=== PATIENT | female | born 1960 | race Caucasian/White ===

== ENCOUNTER → 2016-06-16 | Outpatient (REF) | payer BC ==
[~2016-06-16] MED LIST: COPA20IN AD; IMIT50TA PO; VAGI10TA VA; [UNRECOGNIZED DRUG - CODE] PO
[2016-06-16 11:56] LABS: MEAN CORPUSCULAR HEMOGLOBIN 32.2 pg (27.0-33.0); MEAN CORPUSCULAR HGB CONC 34.1 g/dl (32.0-36.5); MEAN CORPUSCULAR VOLUME 94.4 fl (80.0-96.0); RED CELL DISTRIBUTION WIDTH 13.9 % (11.5-14.5); WHITE BLOOD COUNT 4.3 K/mm3 (4.0-10.0)
[2016-06-16 12:23] LABS: ALBUMIN 3.8 GM/DL (3.2-5.2); ALBUMIN/GLOBULIN RATIO 1.15 (1.00-1.93); ALKALINE PHOSPHATASE 80 U/L (45-117); ALT/SGPT 29 U/L (12-78); ANION GAP 5 MEQ/L (8-16); AST/SGOT 24 U/L (15-37); BILIRUBIN,TOTAL 0.3 MG/DL (0.2-1.0); BLOOD UREA NITROGEN 24 MG/DL (7-18); CALCIUM LEVEL 8.9 MG/DL (8.5-10.1); CARBON DIOXIDE LEVEL 27 MEQ/L (21-32); CHLORIDE LEVEL 109 MEQ/L (98-107); CHOLESTEROL LEVEL 206 MG/DL (<200); CREATININE FOR GFR 0.91 MG/DL (0.55-1.02); GLOMERULAR FILTRATION RATE > 60.0 (>51); GLUCOSE, FASTING 96 MG/DL (70-105); POTASSIUM SERUM 4.5 MEQ/L (3.5-5.1); SODIUM LEVEL 141 MEQ/L (136-145); TOTAL PROTEIN 7.1 GM/DL (6.4-8.2); TRIGLYCERIDES LEVEL 106 MG/DL (<150)
== END ==
LOC: M SFHCCLAY 07:07
PROVIDERS: ATTEND Nurse Practitioner Family
DX: G35 Multiple sclerosis (principal); E78.5 Hyperlipidemia, unspecified

== ENCOUNTER → 2016-06-23 | Outpatient (CLI) | payer BC ==
--- NOTE | 2016-06-23 08:54 | REPMRS ---
Patient History The patient states she had a clinical breast exam in 12/23 Patient is postmenopausal and is nulliparous. Family history of colorectal cancer in father under age 50, breast cancer in mother at age 62, ovarian cancer in paternal aunt under age 50, breast cancer in maternal aunt at age 50 or over, and breast cancer in maternal grandmother under age 50. Taking estrogen for 1 year 3 months. Took unspecified hormones for 3 years. Digital Woman Screen Mammo: June 23, 2016 - Exam #: [id number] Bilateral CC and MLO view(s) were taken. Technologist: Ruba Felipe, Technologist Prior study comparison: June 25, 2015, digital woman screen mammo performed at [facility]. June 27, 2014, digital woman screen mammo performed at [facility]. December 22, 2011, digital woman screen mammo performed at [facility]. FINDINGS: There are scattered fibroglandular densities. There has been no change in the appearance of the mammogram from the prior studies. There is a mild amount of scattered fibroglandular density which is fairly symmetric. There is no interval development of dominant mass, architectural distortion, or clustered microcalcification suggestive of malignancy. ASSESSMENT: BI-RADS/ACR category 1 mammogram. Negative. Recommendation Routine screening mammogram in 1 year (for women over age 40). This mammogram was interpreted with the aid of an FDA-approved computer-aided dectection system. Electronically Signed By: Brian Delgado MD 06/23/16 0854
--- NOTE | 2016-06-24 15:01 | DEXA ---
AP SPINE L1 - L4 0.975 -1.8 -0.9 LT FEMUR TOTAL 0.783 -1.8 -1.1 RT FEMUR TOTAL 0.821 -1.5 -0.8 TOTAL BODY TOTAL OTHER DUAL FEMUR FRAX* ASSESSMENT Risk factors: Family history (parent hip fracture). History of fracture ( adult). Secondary osteoporosis (premature menopause.) 10 year probability of fracture Major osteoporotic fracture 26.7 % Hip fracture 2.0 % COMMENTS: There is low bone density of the spine. There is low bone density of the left hip. There is low bone density of the right hip. The increased density of the spine does represent a significant change since . The decreased density of the left hip does not represent a significant change since 06/27/2014. The increased density of the right hip does represent a significant change. The density of the spine has decreased 4.6% since the initial exam on 2006. The spine density has increased 1.5% since the most recent exam on 06/27/2014. The density of the left hip has decreased 4.2% since the initial exam on 2006. The density of the left hip has decreased 0.6% since the most recent exam on . The density of the right hip has increased 3.7% since the initial exam on 2009. The density of the right hip has increased 1.6% since the most recent exam on . FOLLOW-UP: Recommendation for the next bone density exam: 2 years. ANA PAULA
== END ==
LOC: M WHC 07:50
PROVIDERS: ATTEND Nurse Practitioner Women's Health
DX: E28.319 Asymptomatic premature menopause (principal); M85.80 Other specified disorders of bone density and structure, unspecified site; Z87.81 Personal history of (healed) traumatic fracture; Z12.31 Encounter for screening mammogram for malignant neoplasm of breast; Z80.3 Family history of malignant neoplasm of breast
CPT/HCPCS: 77080; G0202

== ENCOUNTER → 2016-12-01 | Outpatient (REF) | payer BC | LOC: M SFHCWAGY 11:12 | PROVIDERS: ATTEND Nurse Practitioner Women's Health | DX: Z12.4 Encounter for screening for malignant neoplasm of cervix (principal) ==

== ENCOUNTER → 2017-06-22 | Outpatient (CLI) | payer BC | LOC: M WHC 08:07 | DX: Z12.31 Encounter for screening mammogram for malignant neoplasm of breast (principal) | CPT/HCPCS: 77067 ==

== ENCOUNTER → 2017-12-27 | Outpatient (CLI) | payer BC ==
[~2017-12-27] MED LIST changes: -COPA20IN AD; -IMIT50TA PO; +PROHANCE 279.3MG/ML 15ML VIAL (A9576) As Ordered; -VAGI10TA VA; -[UNRECOGNIZED DRUG - CODE] PO
== END ==
LOC: M RAD 10:19
DX: Z12.31 Encounter for screening mammogram for malignant neoplasm of breast (principal); Z80.3 Family history of malignant neoplasm of breast
CPT/HCPCS: A9576

== ENCOUNTER → 2018-05-23 | Outpatient (REF) | payer BC ==
[~2018-05-23] MED LIST changes: +COPA20IN AD; +IMIT50TA PO; -PROHANCE 279.3MG/ML 15ML VIAL (A9576) As Ordered; +VAGI10TA VA; +[UNRECOGNIZED DRUG - CODE] PO
[2018-05-23 11:44] LABS: ALBUMIN 3.8 GM/DL (3.2-5.2); ALT/SGPT 24 U/L (12-78); BILIRUBIN,TOTAL 0.4 MG/DL (0.2-1.0); BLOOD UREA NITROGEN 26 MG/DL (7-18); CALCIUM LEVEL 8.7 MG/DL (8.5-10.1); CARBON DIOXIDE LEVEL 27 MEQ/L (21-32); CHLORIDE LEVEL 109 MEQ/L (98-107); CHOLESTEROL LEVEL 201 MG/DL (<200); CREATININE FOR GFR 0.95 MG/DL (0.55-1.30); GLOMERULAR FILTRATION RATE > 60.0 (>51); GLUCOSE, FASTING 101 MG/DL (70-100); HDL CHOLESTEROL 67 MG/DL (>40); LDL CHOLESTEROL 113 MG/DL (<100); NON-HDL-C 134 MG/DL; POTASSIUM SERUM 4.3 MEQ/L (3.5-5.1); SODIUM LEVEL 142 MEQ/L (136-145); TOTAL PROTEIN 7.1 GM/DL (6.4-8.2); TRIGLYCERIDES LEVEL 107 MG/DL (<150)
== END ==
LOC: M SFHCCLAY 07:05
PROVIDERS: ATTEND Family Medicine
DX: E78.5 Hyperlipidemia, unspecified (principal); E55.9 Vitamin D deficiency, unspecified

== ENCOUNTER → 2018-05-31 | Outpatient (CLI) | payer BC ==
--- NOTE | 2018-05-31 10:25 | REPMRS ---
Patient History The patient states she had a clinical breast exam in 12/2017. Patient is postmenopausal and is nulliparous. Family history of breast cancer at age 62 in mother, breast cancer under age 50 in maternal grandmother, breast cancer at age 50 or over in maternal aunt, colorectal cancer under age 50 in father, ovarian cancer under age 50 in paternal aunt. Taking estrogen for 3 years 3 months. Took unspecified hormones for 3 years. 3D TOMOSYNTHESIS WAS PERFORMED. Digital Woman Screen Mammo: May 31, 2018 - Exam #: [id number] Bilateral CC and MLO view(s) were taken. Technologist: Ruba eFlipe, Technologist Prior study comparison: June 22, 2017, digital woman screen mammo performed at [facility]. June 23, 2016, digital woman screen mammo performed at [facility]. FINDINGS: There are scattered fibroglandular densities. There has been no change in the appearance of the mammogram from the prior studies. There is a mild amount of residual fibroglandular tissue which is fairly symmetric. There is no interval development of dominant mass, architectural distortion, or clustered microcalcification suggestive of malignancy. Assessment: BI-RADS/ACR category 1 mammogram. Negative Mammogram. Recommendation Routine screening mammogram in 1 year (for women over age 40). This mammogram was interpreted with the aid of an FDA-approved computer-aided dectection system. THE LIFETIME RISK OF BREAST CANCER IS 23.1%, THEREFORE SUPPLEMENTAL SCREENING MRI OF THE BREASTS IS RECOMMENDED. Electronically Signed By: Sergio Aldrich MD 05/31/18 1024
--- NOTE | 2018-06-01 11:05 | DEXA ---
AP SPINE L1 - L4 0.941 -2.0 -1.0 LT FEMUR TOTAL 0.787 -1.7 -0.9 LT NECK 0.774 -1.9 -0.8 RT FEMUR TOTAL 0.820 -1.5 -0.7 RT NECK 0.838 -1.4 -0.3 TOTAL BODY TOTAL OTHER COMMENTS: There is low bone density of the spine and hips. The density of the spine has decreased 7.9% since the initial exam on 06/29/2006. The spine density has decreased 3.5% since the most recent exam on 06/23/2016. The density of the left hip has decreased 3.7% since the initial exam on 06/29/2006. The density of the left hip has increased 0.5% since the most recent exam on 06/23/2016. The density of the right hip has increased 3.5% since the initial exam on 09/16/2009. The density of the right hip has decreased 0.1% since the most recent exam on 06/23/2016. FOLLOW-UP: Recommendation for the next bone density exam: 2 years. ANA PAULA
== END ==
LOC: M WHC 08:54
PROVIDERS: ATTEND Nurse Practitioner Women's Health
DX: E28.319 Asymptomatic premature menopause (principal); M81.0 Age-related osteoporosis without current pathological fracture; Z80.3 Family history of malignant neoplasm of breast; Z12.31 Encounter for screening mammogram for malignant neoplasm of breast; Z78.0 Asymptomatic menopausal state; Z79.890 Hormone replacement therapy

== ENCOUNTER → 2018-10-03 | Outpatient (CLI) | payer BC ==
--- NOTE | 2018-10-04 11:58 | REP ---
Clinical: Right foot pain. Technique: AP, lateral, bilateral oblique views of the right foot. Findings: Mild osteopenia and generalized age-related degenerative changes are appreciated. Findings include subchondral sclerosis and joint space narrowing involving the first tarsometatarsal metatarsophalangeal and interphalangeal joints. No acute fracture dislocation. No subcutaneous emphysema or radiodense foreign body. Impression: Mild osteopenia and generalized age-related degenerative changes most pronounced involving the first toe. Electronically Signed by James Nance MD 10/04/2018 02:48 A
== END ==
LOC: M CLY 09:18
PROVIDERS: ATTEND Family Medicine
DX: M85.871 Other specified disorders of bone density and structure, right ankle and foot (principal)

== ENCOUNTER → 2018-12-18 | Outpatient (CLI) | payer BC ==
[~2018-12-18] MED LIST changes: +PROHANCE 279.3MG/ML 15ML VIAL (A9576) As Ordered ONE
--- NOTE | 2018-12-18 14:23 | REP ---
Bilateral breast MRI study without and with IV gadolinium: History: Positive family history of breast carcinoma. High risk screening exam. Comparison mammography May 31, 2018. Comparison breast MRI study December 27, 2017. Technique: Three [place] MRI imaging was performed with a dedicated breast coil. Axial, coronal, and sagittal T1 and T2-weighted scans were obtained with and without fat saturation in the usual fashion. The study includes dynamically acquired post gadolinium enhanced imaging subtraction imaging. Maximal intensity projection and multiplanar re-formation imaging is included as well. The study was interpreted with the aid of [employer], an FDA approved computer-aided detection (CAD) software program, on a dedicated breast MRI work station. The gadolinium enhancement dose is 13 mL of intravenous ProHance. Findings: There is a metallic field susceptibility artifact in the medial aspect of the left breast and precordial region related to a loop recorder. There is no evidence of axillary lymphadenopathy. High-resolution precontrast and postcontrast T1 and T2-weighted scans show no evidence of suspicious morphologic lesion on either side. There is a mild to moderate pattern of fibroglandular tissue bilaterally. There is mild background parenchymal enhancement pattern unchanged. Dynamically acquired sequential post contrast images show no suspicious focus of enhancement and/or washout in either breast to suggest malignancy. Subtraction images are unremarkable. No significant change from the comparison study. Impression: BI-RADS category 1 negative bilateral breast MRI study. Repeat screening breast MRI study recommended 1 year. Electronically Signed by Bolivar Delgado MD 12/18/2018 02:34 P
== END ==
LOC: M RAD 08:07
PROVIDERS: ATTEND Nurse Practitioner Women's Health
DX: Z12.31 Encounter for screening mammogram for malignant neoplasm of breast (principal); R92.2 Inconclusive mammogram; Z80.3 Family history of malignant neoplasm of breast
CPT/HCPCS: A9576; C8908

== ENCOUNTER → 2019-06-12 | Outpatient (CLI) | payer BC ==
[~2019-06-12] MED LIST changes: -PROHANCE 279.3MG/ML 15ML VIAL (A9576) As Ordered ONE
--- NOTE | 2019-06-12 09:10 | REPMRS ---
Patient History The patient states she had a clinical breast exam in Dec 2018.Family history of breast cancer at age 62 in mother, breast cancer under age 50 in maternal grandmother, breast cancer at age 50 or over in maternal aunt, colorectal cancer under age 50 in father, ovarian cancer under age 50 in paternal aunt. Taking estrogen for 3 years 3 months. Took unspecified hormones for 3 years. Digital Woman Screen Mammo: June 12, 2019 - Exam #: [id number] Bilateral CC and MLO view(s) were taken. Technologist: Ivonne Gordon, Technologist Prior study comparison: May 31, 2018, bilateral digital woman screen mammo performed at [facility]. June 22, 2017, digital woman screen mammo performed at [facility]. June 23, 2016, digital woman screen mammo performed at [facility]. FINDINGS: There are scattered fibroglandular densities. The Volpara volumetric breast density category is:B. A cardiac loop recorder is seen projecting medially in the left breast. There has been no change in the appearance of the mammogram from the prior studies. There is a mild amount of scattered fibroglandular density which is fairly symmetric. There is no interval development of dominant mass, architectural distortion, or grouped microcalcification suggestive of malignancy. 3-D tomosynthesis shows no additional findings. Assessment: BI-RADS/ACR category 2 mammogram. Benign Findings. Recommendation Breast MRI of both breasts in 6 months. Routine screening mammogram of both breasts in 1 year (for women over age 40). This patient's Lifetime Breast Cancer Risk is estimated at 22.5 %. Annual screening Breast MRI scanniing is recommended for patient's whose lifetime risk assessment is over 20%. This mammogram was interpreted with the aid of an FDA-approved computer-aided dectection system. Electronically Signed By: Brian Delgado MD 06/12/19 0910
== END ==
LOC: M WHC 08:05
PROVIDERS: ATTEND Nurse Practitioner Women's Health
DX: Z12.31 Encounter for screening mammogram for malignant neoplasm of breast (principal); R92.2 Inconclusive mammogram

== ENCOUNTER → 2019-08-03 | Outpatient (CLI) | payer BC ==
--- NOTE | 2019-08-03 10:21 | REP ---
RIGHT KNEE SERIES: FIVE VIEWS. HISTORY: Unstable right knee. FINDINGS: Five views of the right knee show a normal fabella. There is slight fullness in the suprapatellar bursa region suggesting a small effusion. Bones, joints, and soft tissues are otherwise unremarkable. IMPRESSION: Question small joint effusion. Otherwise negative. Electronically Signed by Bolivar Delgado MD 08/03/2019 11:01 A
== END ==
LOC: M CLY 07:53
PROVIDERS: ATTEND Family Medicine
DX: M25.361 Other instability, right knee (principal); R29.898 Other symptoms and signs involving the musculoskeletal system; M25.461 Effusion, right knee

== ENCOUNTER → 2019-08-22 | Outpatient (CLI) | payer BC ==
--- NOTE | 2019-08-22 11:18 | REP ---
MRI RIGHT KNEE: TECHNIQUE: Axial proton density fat saturation, sagittal proton density T2 STIR, water excitation, coronal proton density, proton density fat saturation. There appears to be a small tear at the apex of the body of the lateral meniscus best seen on coronal images. No other meniscal tear is seen. The cruciate and collateral ligaments are intact. The extensor mechanism is intact. Medial and lateral patellar retinacula are intact. Moderate chondromalacia is seen centrally at the patella with mild subchondral marrow edema. In the medial femoral condyle somewhat posteriorly, there is a focal chondral defect extending down to the bone measuring approximately 6 mm in AP dimension x 4 mm in transverse dimension. Mild to moderate chondromalacia of the remaining lateral femoral condyle. There is also moderate chondromalacia of the lateral tibial plateau diffusely Foci of high signal on T2-weighted images in the proximal tibial shaft likely are indicative of a benign chondroid lesion such as enchondroma. This extends for a craniocaudal length of about 1.4 cm. There is a moderate joint effusion. There is no popliteal cyst. IMPRESSION: Small tear at the apex of the body of the lateral meniscus. This is best seen on coronal images. Cruciate and collateral ligaments intact. Moderate chondromalacia centrally of the patella with mild subchondral marrow edema. There is a focal chondral defect extending down to the bone of the posterior aspect of the lateral femoral condyle with dimensions 6 x 4 mm. There is moderate diffuse chondromalacia of remaining lateral femoral condyle and tibial plateau. There is appears to be an enchondroma of the proximal tibia. There is a moderate joint effusion. Electronically Signed by Sergio Aldrich MD 08/22/2019 11:22 P
== END ==
LOC: M RAD 07:45
PROVIDERS: ATTEND Family Medicine
DX: M94.261 Chondromalacia, right knee (principal); M25.361 Other instability, right knee

== ENCOUNTER → 2019-11-19 | Outpatient (REF) | payer BC | LOC: M SFHCWAGY 13:07 | PROVIDERS: ATTEND Nurse Practitioner Women's Health | DX: Z12.4 Encounter for screening for malignant neoplasm of cervix (principal); Z01.419 Encounter for gynecological examination (general) (routine) without abnormal findings ==

== ENCOUNTER → 2020-01-22 | Outpatient (CLI) | payer BC ==
[~2020-01-22] MED LIST changes: +PROHANCE 279.3MG/ML 15ML VIAL As Ordered ONE; +[UNRECOGNIZED DRUG - CODE] PO; -[UNRECOGNIZED DRUG - CODE] PO
--- NOTE | 2020-01-23 08:34 | REP ---
INDICATION: FAMILY HISTORY, DENSE BREASTS. COMPARISON: Comparison bilateral breast MRI studies are from December 18, 2018 and December 27, 2017. comparison mammography is reviewed from June 12, 2019. TECHNIQUE: Three [place] MRI imaging was performed with a dedicated breast coil. Axial, coronal, and sagittal T1 and T2 weighted scans were obtained with and without fat saturation in the usual fashion. The study includes dynamically acquired post gadolinium-enhanced imaging with image subtraction. Maximum intensity projection and multi planar reformation imaging is included as well. This study is interpreted with the aid of [employer], an FDA approved computer aided detection (CAD) software program, on a dedicated breast MRI workstation. The gadolinium enhancement dose is 13 mL of intravenous ProHance. FINDINGS: Mild pattern of fibroglandular elements is again seen centrally symmetrically. There is a metallic field susceptibility artifact in the medial and posterior aspect of the left breast/left parasternal region as before related to the patient's loop recorder in this location. There is no evidence of axillary lymphadenopathy or significant breast cystic change. High-resolution pre and post-contrast T1 and T2 weighted scans show no suspicious morphologic abnormality in either breast. There is a multifocal somewhat nodular pattern of background parenchymal enhancement again seen unchanged. No suspicious focus of enhancement and/or washout is seen in either breast on dynamically acquired post contrast images. Subtraction images show no additional abnormality. Findings are felt to be unchanged. IMPRESSION: BI-RADS category 1-findings. Breast MRI study unchanged. Repeat screening breast MRI study recommended in 1 year. Annual screening mammography should continue as well. <Electronically signed by Brian Delgado > 01/23/20 [id number]
== END ==
LOC: M RAD 15:45
PROVIDERS: ATTEND Nurse Practitioner Women's Health
DX: R92.2 Inconclusive mammogram (principal); Z91.89 Other specified personal risk factors, not elsewhere classified; Z90.3 Acquired absence of stomach [part of]; Z95.818 Presence of other cardiac implants and grafts
CPT/HCPCS: A9576; C8908

== ENCOUNTER → 2020-05-29 | Outpatient (REF) | payer BC ==
[~2020-05-29] MED LIST changes: -PROHANCE 279.3MG/ML 15ML VIAL As Ordered ONE
[2020-05-29 11:54] LABS: BASO # 0.1 10^3/uL (0.0-0.2); EOS # 0.3 10^3/uL (0.0-0.5); HEMOGLOBIN 13.8 g/dl (12.0-15.5); LYMPH % 42.1 % (24.0-44.0); MEAN CORPUSCULAR HEMOGLOBIN 31.2 pg (27.0-33.0); MEAN CORPUSCULAR HGB CONC 32.9 g/dl (32.0-36.5); MEAN CORPUSCULAR VOLUME 94.8 fl (80.0-96.0); MONO # 0.5 10^3/uL (0.0-0.8); MONO % 9.7 % (2.0-8.0); PLATELET COUNT, AUTOMATED 281 10^3/uL (150-450); RED BLOOD COUNT 4.43 10^6/uL (4.00-5.40); WHITE BLOOD COUNT 4.8 10^3/uL (4.0-10.0)
[2020-05-29 12:25] LABS: HEMOGLOBIN A1c 5.5 %
[2020-05-29 12:27] LABS: ALBUMIN 3.9 GM/DL (3.2-5.2); ALT/SGPT 46 U/L (12-78); BILIRUBIN,TOTAL 0.3 MG/DL (0.2-1.0); BLOOD UREA NITROGEN 20 MG/DL (7-18); CALCIUM LEVEL 9.3 MG/DL (8.5-10.1); CARBON DIOXIDE LEVEL 30 MEQ/L (21-32); CHLORIDE LEVEL 108 MEQ/L (98-107); CHOLESTEROL LEVEL 230 MG/DL (<200); CHOLESTEROL RISK RATIO 3.333 (<5); CREATININE FOR GFR 0.83 MG/DL (0.55-1.30); GLOMERULAR FILTRATION RATE > 60.0 (>51); GLUCOSE, FASTING 102 MG/DL (70-100); HDL CHOLESTEROL 69 MG/DL (>40); LDL CHOLESTEROL 137 MG/DL (<100); NON-HDL-C 161 MG/DL; POTASSIUM SERUM 4.9 MEQ/L (3.5-5.1); SODIUM LEVEL 139 MEQ/L (136-145); TOTAL PROTEIN 6.9 GM/DL (6.4-8.2); TRIGLYCERIDES LEVEL 122 MG/DL (<150)
== END ==
LOC: M SFHCCLAY 07:12
PROVIDERS: ATTEND Family Medicine
DX: G35 Multiple sclerosis (principal); I48.0 Paroxysmal atrial fibrillation; E78.5 Hyperlipidemia, unspecified; R73.01 Impaired fasting glucose; E55.9 Vitamin D deficiency, unspecified

== ENCOUNTER → 2020-06-10 | Outpatient (CLI) | payer BC ==
--- NOTE | 2020-06-10 09:14 | REPMRS ---
Patient History The patient states she had a clinical breast exam in 2019. Family history of breast cancer at age 62 in mother, breast cancer under age 50 in maternal grandmother, breast cancer at age 50 or over in maternal aunt, colorectal cancer under age 50 in father, ovarian cancer under age 50 in paternal aunt. Taking estrogen for 3 years 3 months. Took unspecified hormones for 3 years. No breast complaints today Patient signed the MRS sheet 1st covid vaccine 05/01/20-left arm-Pfizer 2nd covid vaccine 05/22/20-left arm Loop recorder left LIQ for about 18 months Digital Woman Screen Mammo: June 10, 2020 - Exam #: [id number] Bilateral CC and MLO view(s) were taken. Technologist: Elisabeth Bedolla, Technologist Prior study comparison: June 12, 2019, bilateral digital woman screen mammo performed at [facility]. May 31, 2018, bilateral digital woman screen mammo performed at [facility]. FINDINGS: There are scattered fibroglandular densities. Screening. Digital screening (2D) mammography was performed bilaterally in the CC and MLO projections. Additionally, breast tomosynthesis (3D mammography) was performed bilaterally in the CC and MLO projections. Todays exam was compared to the prior exams(s). By history, the patient has no complaints of a palpable breast abnormality or other significant breast complaints. The breasts are unchanged in size and shape. There are no arlen-soft tissue densities or spiculated masses. There is no internal architectural distortion. There are no suspicious arlen-calcific clusters. Skin thickening or nipple retraction is not present. IMPRESSION: BI-RADS Category 2- Benign Findings(s). There is no evidence of malignant alteration of the breasts. Followup examination recommended in one year. This mammogram was read with the assistance of [employer],an FDA approved computer aided detection system for mammography. The Volpara volumetric breast density category is B, there are scattered areas of fibroglandular density. Negative x-ray reports should not delay surgical consultation if a dominant or clinically suspicious mass is present. The lifetime Tyrer-Cuzick score is 21.9% Not all breast cancers can be identified by mammography. Therefore, we recommend that you continue to perform regular breast self-examination and physical examination and then promptly contact your physician of any concerns or changes. Adenosis and dense breasts may obscure an underlying neoplasm. Assessment: BI-RADS/ACR category 2 mammogram. Benign Findings. Recommendation Routine screening mammogram of both breasts in 1 year. Electronically Signed By: Deepak López DO 06/10/20 0985
--- NOTE | 2020-06-10 10:34 | DEXAMM ---
INDICATION: E28.319 PREMATURE MENOPAUSE,OSTEOPENIA AFTER MENOPAUSE. COMPARISON: 05/31/2018 as well as other prior exams. TECHNIQUE: Bone density was measured using dual-energy x-ray absorptiometry (DEXA). FINDINGS: AP SPINE L1-L4 BMD 1.003 g/cm2 Young Adult T-Score -1.5 Age Matched Z-Score -0.4. LT FEMUR, TOTAL BMD 0.781 g/cm2 Young Adult T-Score -1.8 Age Matched Z-Score -0.9. LT NECK BMD 0.768 g/cm2 Young Adult T-Score -1.9 Age Matched Z-Score -0.7. RT FEMUR, TOTAL BMD 0.813 g/cm2 Young Adult T-Score -1.5 Age Matched Z-Score -0.6. RT NECK BMD 0.822 g/cm2 Young Adult T-Score -1.6 Age Matched Z-Score -0.3. IMPRESSION: There is low bone density of the spine. There is low bone density of the left hip. There is low bone density of the right hip. The density of the spine has decreased 1.9% since the initial exam on 06/29/2006. The density of the spine increased 6.6% since most recent exam on 05/31/2018. The density of the left hip has decreased 4.4% since initial exam on 06/29/2006. The density of the left hip has decreased 0.8% since most recent exam on 05/31/2018. The density of the right hip has increased 2.7% since the initial exam on 09/16/2009. The density of the right hip has decreased 0.9% since the most recent exam on 05/31/2018. FOLLOW-UP: Recommendation for the next bone density exam: 2 years. <Electronically signed by Sergio Aldrich > 06/10/20 2442
== END ==
LOC: M WHC 07:22
PROVIDERS: ATTEND Nurse Practitioner Women's Health
DX: Z12.31 Encounter for screening mammogram for malignant neoplasm of breast (principal); Z80.3 Family history of malignant neoplasm of breast; M85.851 Other specified disorders of bone density and structure, right thigh; M85.852 Other specified disorders of bone density and structure, left thigh; E28.319 Asymptomatic premature menopause; M81.0 Age-related osteoporosis without current pathological fracture

== ENCOUNTER → 2021-06-01 | Outpatient (REF) | payer BC ==
[2021-06-01 12:09] LABS: ALBUMIN 3.6 GM/DL (3.2-5.2); ALT/SGPT 33 U/L (12-78); BILIRUBIN,TOTAL 0.4 MG/DL (0.2-1.0); BLOOD UREA NITROGEN 28 MG/DL (7-18); CARBON DIOXIDE LEVEL 28 MEQ/L (21-32); CHLORIDE LEVEL 108 MEQ/L (98-107); CHOLESTEROL LEVEL 209 MG/DL (<200); CHOLESTEROL RISK RATIO 3.426 (<5); CREATININE FOR GFR 0.85 MG/DL (0.55-1.30); FREE T4 1.05 NG/DL (0.76-1.46); GLOMERULAR FILTRATION RATE > 60.0 (>45); GLUCOSE, FASTING 110 MG/DL (70-100); HDL CHOLESTEROL 61 MG/DL (>40); LDL CHOLESTEROL 121 MG/DL (<100); NON-HDL-C 148 MG/DL; POTASSIUM SERUM 4.6 MEQ/L (3.5-5.1); SODIUM LEVEL 139 MEQ/L (136-145); TOTAL PROTEIN 6.5 GM/DL (6.4-8.2); TOTAL T3 104.9 NG/DL (60.0-181.0); TRIGLYCERIDES LEVEL 135 MG/DL (<150)
[2021-06-01 15:06] LABS: HEMOGLOBIN A1c 5.5 %
== END ==
LOC: M SFHCCLAY 07:17
PROVIDERS: ATTEND Family Medicine
DX: E78.5 Hyperlipidemia, unspecified (principal); Z80.3 Family history of malignant neoplasm of breast; R73.01 Impaired fasting glucose; E55.9 Vitamin D deficiency, unspecified; M25.361 Other instability, right knee

== ENCOUNTER → 2021-09-10 | Outpatient (CLI) | payer BC | LOC: M CLY 09:59 | PROVIDERS: ATTEND Physician Assistant | DX: M20.12 Hallux valgus (acquired), left foot (principal); M77.32 Calcaneal spur, left foot ==

== ENCOUNTER → 2022-10-06 | Outpatient (REF) | payer BC | LOC: M SFHCDERM 14:09 | PROVIDERS: ATTEND Physician Assistant | DX: L57.0 Actinic keratosis (principal) ==

== ENCOUNTER → 2022-11-12 | Outpatient (REF) | payer BC ==
[2022-11-12 17:20] LABS: BASO % 0.7 % (0.0-1.0); EOS # 0.3 10^3/uL (0.0-0.5); EOS % 6.9 % (0.0-3.0); HEMATOCRIT 40.9 % (36.0-47.0); HEMOGLOBIN 13.4 g/dl (12.0-15.5); LYMPH % 24.1 % (24.0-44.0); MEAN CORPUSCULAR HGB CONC 32.8 g/dl (32.0-36.5); MEAN CORPUSCULAR VOLUME 94.7 fl (80.0-96.0); MONO # 0.7 10^3/uL (0.0-0.8); NEUTROPHILS # 2.3 10^3/uL (1.5-8.5); NEUTROPHILS % 53.1 % (36.0-66.0); PLATELET COUNT, AUTOMATED 229 10^3/uL (150-450); RED BLOOD COUNT 4.32 10^6/uL (4.00-5.40); WHITE BLOOD COUNT 4.3 10^3/uL (4.0-10.0)
[2022-11-12 17:28] LABS: ALBUMIN 3.6 G/DL (3.2-5.2); BILIRUBIN,TOTAL 0.4 MG/DL (0.3-1.2); CALCIUM LEVEL 8.9 MG/DL (8.3-10.6); CHOLESTEROL RISK RATIO 3.42 (<5); CREATININE FOR GFR 1.05 MG/DL (0.55-1.30); GLOMERULAR FILTRATION RATE 56.5 (>45); HEMOGLOBIN A1c 5.6 % (4.0-6.0); LDL CHOLESTEROL 118.8 MG/DL (<100); POTASSIUM SERUM 4.6 MMOL/L (3.5-5.1); TOTAL PROTEIN 6.7 G/DL (5.7-8.2)
[2022-11-12 17:31] LABS: THYROID STIMULATING HORMONE 0.84 uIU/ML (0.55-4.78)
== END ==
LOC: M SFHCCLAY 09:35
PROVIDERS: ATTEND Family Medicine
DX: E78.5 Hyperlipidemia, unspecified (principal); R73.01 Impaired fasting glucose; E55.9 Vitamin D deficiency, unspecified

== ENCOUNTER → 2023-11-25 | Outpatient (REF) | payer BC ==
[2023-11-25 11:53] LABS: BASO % 0.8 % (0.0-1.0); EOS # 0.2 10^3/uL (0.0-0.5); EOS % 4.1 % (0.0-3.0); HEMATOCRIT 42.4 % (36.0-47.0); HEMOGLOBIN 14.1 g/dl (12.0-15.5); LYMPH # 1.7 10^3/uL (1.5-5.0); LYMPH % 34.8 % (24.0-44.0); MEAN CORPUSCULAR HEMOGLOBIN 31.5 pg (27.0-33.0); MEAN CORPUSCULAR HGB CONC 33.3 g/dl (32.0-36.5); MEAN CORPUSCULAR VOLUME 94.9 fl (80.0-96.0); MONO # 0.6 10^3/uL (0.0-0.8); MONO % 11.2 % (2.0-8.0); NEUTROPHILS # 2.4 10^3/uL (1.5-8.5); NEUTROPHILS % 48.9 % (36.0-66.0); PLATELET COUNT, AUTOMATED 254 10^3/uL (150-450); RED BLOOD COUNT 4.47 10^6/uL (4.00-5.40); WHITE BLOOD COUNT 4.9 10^3/uL (4.0-10.0)
[2023-11-25 11:59] LABS: ALBUMIN 3.6 G/DL (3.2-5.2); ALKALINE PHOSPHATASE 99 U/L (46-116); ALT/SGPT 41 U/L (7.0-40); AST/SGOT 30 U/L (<34); BILIRUBIN,TOTAL 0.4 MG/DL (0.3-1.2); BLOOD UREA NITROGEN 21 MG/DL (9-23); CALCIUM LEVEL 9.6 MG/DL (8.3-10.6); CARBON DIOXIDE LEVEL 28 MMOL/L (20-31); CHLORIDE LEVEL 111 MMOL/L (98-107); CHOLESTEROL LEVEL 253 MG/DL (<200); CHOLESTEROL RISK RATIO 4.39 (<5); CREATININE FOR GFR 0.84 MG/DL (0.55-1.30); GLOMERULAR FILTRATION RATE > 60.0 (>45); GLUCOSE, FASTING 112 MG/DL (74-106); HDL CHOLESTEROL 57.6 MG/DL (>40); LDL CHOLESTEROL 162.4 MG/DL (<100); NON-HDL-C 195.4 MG/DL; POTASSIUM SERUM 4.8 MMOL/L (3.5-5.1); SODIUM LEVEL 141 MMOL/L (136-145); TOTAL PROTEIN 6.7 G/DL (5.7-8.2); TRIGLYCERIDES LEVEL 165 MG/DL (<150)
[2023-11-25 12:19] LABS: HEMOGLOBIN A1c 5.5 % (4.0-6.0)
== END ==
LOC: M SFHCCLAY 08:29
PROVIDERS: ATTEND Family Medicine
DX: E78.5 Hyperlipidemia, unspecified (principal); R73.01 Impaired fasting glucose; G25.81 Restless legs syndrome; G35 Multiple sclerosis; E55.9 Vitamin D deficiency, unspecified

== ENCOUNTER → 2024-09-18 | Outpatient (REF) | payer OTHER | LOC: M SFHCCLAY 08:03 | PROVIDERS: ATTEND Physician Assistant | DX: L02.214 Cutaneous abscess of groin (principal) ==

== ENCOUNTER → 2024-11-26 | Outpatient (REF) | payer OTHER ==
[2024-11-26 13:25] LABS: BASO # 0.0 10^3/uL (0.0-0.2); BASO % 0.8 % (0.0-1.0); EOS # 0.2 10^3/uL (0.0-0.5); EOS % 4.0 % (0.0-3.0); LYMPH # 2.0 10^3/uL (1.5-5.0); LYMPH % 39.7 % (24.0-44.0); MONO # 0.4 10^3/uL (0.0-0.8); MONO % 8.4 % (2.0-8.0); NEUTROPHILS # 2.3 10^3/uL (1.5-8.5); NEUTROPHILS % 46.9 % (36.0-66.0); PLATELET COUNT, AUTOMATED 245 10^3/uL (150-450)
[2024-11-26 13:42] LABS: ESTIMATED AVERAGE GLUCOSE 120.0 MG/DL (60-110)
[2024-11-26 13:55] LABS: ALT/SGPT 47.0 U/L (7.0-40); AST/SGOT 42.0 U/L (<34); CALCIUM LEVEL 9.2 MG/DL (8.3-10.6); CARBON DIOXIDE LEVEL 26.0 MMOL/L (20-31); CHLORIDE LEVEL 106.0 MMOL/L (98-107); CHOLESTEROL LEVEL 158.0 MG/DL (<200); CHOLESTEROL RISK RATIO 2.47 (<5); CREATININE FOR GFR 0.88 MG/DL (0.55-1.30); GLOMERULAR FILTRATION RATE 73.3 (>45); LDL CHOLESTEROL 72.3 MG/DL (<100); NON-HDL-C 94.1 MG/DL; POTASSIUM SERUM 4.3 MMOL/L (3.5-5.1); SODIUM LEVEL 143.0 MMOL/L (136-145); TRIGLYCERIDES LEVEL 109.0 MG/DL (<150)
== END ==
LOC: M SFHCCLAY 08:21
PROVIDERS: ATTEND Family Medicine
DX: G25.81 Restless legs syndrome (principal); R73.01 Impaired fasting glucose; G35.D Multiple sclerosis, unspecified; E78.5 Hyperlipidemia, unspecified; E55.9 Vitamin D deficiency, unspecified